=== PATIENT | male | born 1940 | race Caucasian/White ===

== ENCOUNTER 2020-08-01 17:47 | Inpatient (IN) ==
[2020-08-01 18:31] LABS: Basophils # 0.1 10*3/uL (0.0-0.2); Basophils % 0.8 % (0.0-0.8); Eosinophils # 0.1 10*3/uL (0.0-0.87); Eosinophils % 2.3 % (0.00-10.9); Hematocrit 40.7 VOL% (42.0-52.0); Immature Granulocytes % 0.3 %; Immature Granulocytes Absolute 0.02 #; Lymphocytes # 1.7 10*3/uL (1.4-4.0); Lymphocytes % 27.3 % (21.2-54.2); Mean Corpuscular HGB Conc 34.4 GM/DL (32-36); Mean Corpuscular Volume 92.5 FL (87-102); Mean Platelet Volume 9.3 FL (9.6-12.0); Monocytes % 8.2 % (1.7-12.7); Neutrophils % 61.1 % (38.7-73.9); Platelet Count 139 T/CUMM (130-400); Red Cell Distribution Width 13.2 % (9.3-17.3); White Blood Count 6.1 T/CUMM (4-12)
[2020-08-01 18:57] LABS: Albumin 3.9 G/DL (3.4-5.0); Bilirubin,Total 0.9 MG/DL (0.2-1.0); Calcium 9.1 MG/DL (8.5-10.1); Osmolality,Calculated 288.3 MOS/KG (273-304); Potassium 3.7 MMOL/L (3.5-5.1); Total Protein 7.1 G/DL (5.0-7.5)
[2020-08-01 19:17] LABS: INR 1.1; PT Patient Result 11.6 SECS (9.8-11.9)
[2020-08-01 20:01] LABS: Free T4 (Free Thyroxine) 1.14 NG/DL (0.76-1.46); Thyroid Stimulating Hormone 1.75 uIU/ml (0.358-3.74)
[2020-08-01 20:45] LABS: Bilirubin,Urine Negative (Negative); Blood, Urine Small mg/dL (Negative); Glucose,Urine (UA) Negative (Negative); Hyaline Casts,Urine 51 /LPF (0-3); Ketones,Urine Negative (Negative); Mucus,Urine Occasional /LPF (Occasional); Nitrite,Urine Negative (Negative); Protein,Urine 30 MG/DL; RBC,Urine 2 /HPF (0-4); Urine Appearance CLEAR (Clear); Urine Color Yellow (Yellow); Urine Specific Gravity 1.019 (1.001-1.035); WBC,Urine <1 /HPF (0-6)
[2020-08-01 21:07] LABS: Barbiturates Screen,Urine Negative (Negative); Benzodiazepines Screen,Urine Negative (Negative); Cannabinoid Screen,Urine Negative (Negative); Opiate Screen,Urine Negative (Negative); Phencyclidine Screen,Urine Negative (Negative)
[2020-08-01] MEDS ORDERED: MORPHINE 4 MG/1 ML VIAL IV PRN (21:59)
[2020-08-01] MEDS ORDERED: MAGNESIUM SULF RIDER 2 GM in PREMIX 1 EACH IV PRN (21:59)
[2020-08-01] MEDS ORDERED: ONDANSETRON 4 MG/2 ML VIAL IV PRN (21:59)
[2020-08-01] MEDS ORDERED: MAGNESIUM SULF RIDER 4 GM in PREMIX 1 EACH IV PRN (21:59)
[2020-08-02 06:00] LABS: Basophils # 0.1 10*3/uL (0.0-0.2); Basophils % 1.2 % (0.0-0.8); Eosinophils # 0.2 10*3/uL (0.0-0.87); Eosinophils % 3.8 % (0.00-10.9); Hematocrit 35.2 VOL% (42.0-52.0); Hemoglobin 12.8 GM/DL (14.0-18.0); Immature Granulocytes % 0.5 %; Immature Granulocytes Absolute 0.02 #; Lymphocytes # 1.2 10*3/uL (1.4-4.0); Lymphocytes % 28.3 % (21.2-54.2); Mean Corpuscular HGB Conc 36.4 GM/DL (32-36); Mean Corpuscular Volume 91.4 FL (87-102); Mean Platelet Volume 9.3 FL (9.6-12.0); Monocytes % 7.8 % (1.7-12.7); Neutrophils % 58.4 % (38.7-73.9); Red Blood Count 3.85 MC/CUMM (3.8-5.5); Red Cell Distribution Width 13.1 % (9.3-17.3)
[2020-08-02 06:09] LABS: Platelet Count 106 T/CUMM (130-400); White Blood Count 4.2 T/CUMM (4-12)
[2020-08-02 06:13] LABS: Albumin 3.1 G/DL (3.4-5.0); Calcium 8.7 MG/DL (8.5-10.1); Osmolality,Calculated 288.1 MOS/KG (273-304); Potassium 3.3 MMOL/L (3.5-5.1); Risk Ratio 2.29; Total Protein 6.1 G/DL (5.0-7.5); VLDL CHOLESTEROL 13.2 MG/DL
[2020-08-02] MEDS ORDERED: ceFAZolin 1,000 MG in SYRINGE 1 EACH IV ONE (08:20)
[2020-08-02] MEDS ORDERED: ceFAZolin 1,000 MG VIAL IRRIG ONE (08:20)
[2020-08-02] MEDS: PANTOPRAZOLE 40 MG TABLET PO SCH (08:23)
[2020-08-02] MEDS: SODIUM CHLORIDE 0.9% 1,000 ML IV SCH ×3 (08:51→17:17)
[2020-08-02] MEDS ORDERED: POTASSIUM CHLORIDE 20 MEQ TABLET PO ONE (09:32)
[2020-08-02] MEDS ORDERED: DIAZEPAM 5 MG TABLET PO ONE ×2 (12:00→13:00)
[2020-08-02] MEDS ORDERED: diphenhydrAMINE CAP 50 MG CAPSULE PO ONE ×2 (12:00→13:00)
[2020-08-02] MEDS ORDERED: HEPARIN/NACL 0.9% 2 UNITS/ML 500 ML IV ONE (12:16)
[2020-08-02] MEDS ORDERED: LIDOCAINE 1%/EPI INJ 20 ML VIAL ONE (12:16)
[2020-08-02] MEDS ORDERED: ceFAZolin 1,000 MG VIAL ONE (12:24)
[2020-08-02] MEDS: amLODIPine 5 MG TABLET PO SCH (14:47)
[2020-08-03] MEDS: SODIUM CHLORIDE 0.9% 1,000 ML IV SCH ×2 (02:23→08:52)
[2020-08-03 04:50] VITALS: BP 153/78
[2020-08-03 05:16] LABS: Hemoglobin 13.3 GM/DL (14.0-18.0); Red Blood Count 4.14 MC/CUMM (3.8-5.5); White Blood Count 5.4 T/CUMM (4-12)
[2020-08-03 05:17] LABS: Basophils # 0.1 10*3/uL (0.0-0.2); Basophils % 0.9 % (0.0-0.8); Eosinophils # 0.2 10*3/uL (0.0-0.87); Eosinophils % 3.4 % (0.00-10.9); Hematocrit 37.5 VOL% (42.0-52.0); Immature Granulocytes % 0.4 %; Immature Granulocytes Absolute 0.02 #; Lymphocytes # 1.2 10*3/uL (1.4-4.0); Lymphocytes % 22.4 % (21.2-54.2); Mean Corpuscular HGB Conc 35.5 GM/DL (32-36); Mean Corpuscular Volume 90.6 FL (87-102); Mean Platelet Volume 9.3 FL (9.6-12.0); Neutrophils % 63.9 % (38.7-73.9); Platelet Count 108 T/CUMM (130-400); Red Cell Distribution Width 12.8 % (9.3-17.3)
[2020-08-03 05:29] LABS: Calcium 8.5 MG/DL (8.5-10.1); Osmolality,Calculated 280.5 MOS/KG (273-304); Potassium 3.4 MMOL/L (3.5-5.1)
[2020-08-03 06:01] LABS: Platelet Estimate Adequate
[2020-08-03 06:02] LABS: Anisocytosis Slight
[2020-08-03] MEDS: PANTOPRAZOLE 40 MG TABLET PO SCH (08:18)
[2020-08-03] MEDS: amLODIPine 5 MG TABLET PO SCH (08:18)
[2020-08-03] MEDS ORDERED: ASPIRIN EC 81 MG TABLET PO SCH (09:00)
[2020-08-03] MEDS ORDERED: FEXOFENADINE 180 MG TABLET PO SCH (09:00)
== END 2020-08-03 10:56 | disposition home or self-care (01) | DRG 243 ==
LOC: N.ED 17:47 → N.EDINP 19:34 → N.TELEN 20:07
PROVIDERS: ADMIT Internal Medicine Cardiovascular Disease; ATTEND Internal Medicine Cardiovascular Disease

== ENCOUNTER 2022-07-04 09:26 | Inpatient (IN) ==
[2022-07-04 10:02] LABS: Basophils # 0.1 10*3/uL (0.0-0.2); Basophils % 0.9 % (0.0-0.8); Eosinophils # 0.2 10*3/uL (0.0-0.87); Eosinophils % 2.9 % (0.00-10.9); Hematocrit 42.1 VOL% (42.0-52.0); Hemoglobin 13.9 GM/DL (14.0-18.0); Immature Granulocytes % 0.5 %; Immature Granulocytes Absolute 0.03 #; Lymphocytes # 1.6 10*3/uL (1.4-4.0); Lymphocytes % 23.9 % (21.2-54.2); Mean Corpuscular Volume 98.1 FL (87-102); Mean Platelet Volume 10.7 FL (9.6-12.0); Monocytes # 0.5 10*3/uL (0.11-0.8); Monocytes % 8.2 % (1.7-12.7); Neutrophils % 63.6 % (38.7-73.9); Platelet Count 142 T/CUMM (130-400); Red Blood Count 4.29 MC/CUMM (3.8-5.5)
[2022-07-04 10:22] LABS: Albumin 3.2 G/DL (3.4-5.0); Bilirubin,Total 0.8 MG/DL (0.20-1.00); Calcium 8.8 MG/DL (8.5-10.1); Potassium 4.1 MMOL/L (3.5-5.1)
[2022-07-04 10:32] LABS: INR 1.1; PT Patient Result 12.3 SECS (10.1-12.1)
[2022-07-04] MEDS ORDERED: ONDANSETRON 4 MG/2 ML VIAL ONE (10:41)
[2022-07-04] MEDS ORDERED: ONDANSETRON 4 MG/2 ML VIAL IV STA (10:58)
[2022-07-04] MEDS ORDERED: FUROSEMIDE 40 MG/4 ML VIAL IV STA (11:02)
[2022-07-04] MEDS ORDERED: ALBUTEROL 2.5 MG/3 ML NEB RESP TX PRN (12:00)
[2022-07-04] MEDS: HEPARIN 5,000 UNIT/1 ML VIAL SUBCUT SCH ×2 (12:25→23:40)
[2022-07-04] MEDS: AZITHROMYCIN INJ 500 MG in SODIUM CHLORIDE 0.9% 250 ML IV SCH (12:28)
[2022-07-04] MEDS: FUROSEMIDE 40 MG/4 ML VIAL IV SCH ×2 (12:50→19:47)
[2022-07-04 14:05] LABS: Bacteria,Urine Occasional /HPF (Few); Hyaline Casts,Urine 4 /LPF (0-3); Squamous Epithelial Cell,Urine Occasional /HPF (0-10)
[2022-07-04 14:07] LABS: Glucose,Urine (UA) Negative (Negative); Ketones,Urine Negative (Negative); Nitrite,Urine Negative (Negative); Protein,Urine Negative (Negative); Urine Appearance Clear (Clear); Urine Color Yellow (Yellow)
[2022-07-04 14:08] LABS: Bilirubin,Urine Negative (Negative); Blood, Urine Negative (Negative); Urine Urobilinogen 0.2 eU/dL (<2.0)
[2022-07-04] MEDS: cefTRIAXone 1,000 MG in SODIUM CHLORIDE 0.9% 100 ML IV SCH (15:25)
[2022-07-04] MEDS: PANTOPRAZOLE 40 MG VIAL IV SCH (20:46)
[2022-07-05] MEDS ORDERED: MORPHINE 2 MG/1 ML SYRINGE IV PRN (00:53)
[2022-07-05] MEDS: FUROSEMIDE 40 MG/4 ML VIAL IV SCH ×3 (03:55→21:17)
[2022-07-05 05:54] LABS: Basophils % 0.6 % (0.0-0.8); Eosinophils # 0.1 10*3/uL (0.0-0.87); Hematocrit 40.3 VOL% (42.0-52.0); Hemoglobin 13.5 GM/DL (14.0-18.0); Immature Granulocytes % 0.4 %; Immature Granulocytes Absolute 0.03 #; Lymphocytes # 1.2 10*3/uL (1.4-4.0); Lymphocytes % 17.2 % (21.2-54.2); Mean Corpuscular HGB Conc 33.5 GM/DL (32-36); Mean Corpuscular Volume 97.6 FL (87-102); Mean Platelet Volume 10.9 FL (9.6-12.0); Monocytes # 0.5 10*3/uL (0.11-0.8); Monocytes % 6.8 % (1.7-12.7); Platelet Count 126 T/CUMM (130-400); Red Blood Count 4.13 MC/CUMM (3.8-5.5); Red Cell Distribution Width 13.9 % (9.3-17.3)
[2022-07-05 06:08] LABS: Risk Ratio 1.95; VLDL Cholesterol 12.4 MG/DL
[2022-07-05] MEDS: PANTOPRAZOLE 40 MG VIAL IV SCH ×2 (08:15→21:19)
[2022-07-05] MEDS: carvediloL 3.125 MG TABLET PO SCH ×2 (09:00→16:02)
[2022-07-05] MEDS: HEPARIN 5,000 UNIT/1 ML VIAL SUBCUT SCH ×2 (13:54→23:42)
[2022-07-05] MEDS: AZITHROMYCIN INJ 500 MG in SODIUM CHLORIDE 0.9% 250 ML IV SCH (13:54)
[2022-07-05] MEDS: cefTRIAXone 1,000 MG in SODIUM CHLORIDE 0.9% 100 ML IV SCH (15:56)
[2022-07-06] MEDS: carvediloL 3.125 MG TABLET PO SCH ×2 (08:30→17:04)
[2022-07-06 08:46] LABS: Calcium 8.3 MG/DL (8.5-10.1)
[2022-07-06 08:52] LABS: Potassium 2.5 MMOL/L (3.5-5.1)
[2022-07-06] MEDS: FUROSEMIDE 40 MG/4 ML VIAL IV SCH ×2 (08:56→20:55)
[2022-07-06] MEDS ORDERED: POTASSIUM CHLORIDE 20 MEQ TABLET PO ONE ×2 (09:14→11:24)
[2022-07-06] MEDS ORDERED: MAGNESIUM SULF RIDER 2 GM/50 ML PREMIX IV ONE (09:15)
[2022-07-06] MEDS: PANTOPRAZOLE 40 MG VIAL IV SCH ×2 (09:42→20:54)
[2022-07-06] MEDS: HEPARIN 5,000 UNIT/1 ML VIAL SUBCUT SCH (11:37)
[2022-07-06] MEDS: AZITHROMYCIN INJ 500 MG in SODIUM CHLORIDE 0.9% 250 ML IV SCH (14:19)
[2022-07-06] MEDS: cefTRIAXone 1,000 MG in SODIUM CHLORIDE 0.9% 100 ML IV SCH (17:04)
[2022-07-07 05:01] LABS: Basophils % 0.5 % (0.0-0.8); Eosinophils # 0.1 10*3/uL (0.0-0.87); Eosinophils % 1.6 % (0.00-10.9); Hematocrit 39.2 VOL% (42.0-52.0); Hemoglobin 13.3 GM/DL (14.0-18.0); Immature Granulocytes % 0.5 %; Immature Granulocytes Absolute 0.03 #; Lymphocytes # 0.8 10*3/uL (1.4-4.0); Lymphocytes % 13.3 % (21.2-54.2); Mean Corpuscular HGB Conc 33.9 GM/DL (32-36); Mean Corpuscular Volume 95.8 FL (87-102); Mean Platelet Volume 10.3 FL (9.6-12.0); Monocytes # 0.5 10*3/uL (0.11-0.8); Neutrophils % 76.1 % (38.7-73.9); Platelet Count 118 T/CUMM (130-400); Red Blood Count 4.09 MC/CUMM (3.8-5.5); Red Cell Distribution Width 13.6 % (9.3-17.3); White Blood Count 5.62 T/CUMM (4-12)
[2022-07-07 05:22] LABS: Calcium 8.4 MG/DL (8.5-10.1); Potassium 2.8 MMOL/L (3.5-5.1)
[2022-07-07] MEDS ORDERED: POTASSIUM CHLORIDE 20 MEQ TABLET PO ONE (08:20)
[2022-07-07] MEDS: FUROSEMIDE 40 MG/4 ML VIAL IV SCH ×2 (09:32→21:48)
[2022-07-07] MEDS: carvediloL 3.125 MG TABLET PO SCH ×3 (09:32→20:42)
[2022-07-07] MEDS: POTASSIUM CHLORIDE 20 MEQ TABLET PO SCH ×2 (09:32→21:24)
[2022-07-07] MEDS: PANTOPRAZOLE 40 MG VIAL IV SCH ×2 (09:32→21:53)
[2022-07-07] MEDS: ISOSORBIDE MONONITRATE 30 MG TABLET PO SCH (12:26)
[2022-07-07] MEDS: hydrALAZINE 25 MG TABLET PO SCH ×2 (12:26→21:24)
[2022-07-07] MEDS: DAPAGLIFLOZIN 10 MG TABLET PO SCH (12:26)
[2022-07-07] MEDS: AZITHROMYCIN INJ 500 MG in SODIUM CHLORIDE 0.9% 250 ML IV SCH (12:30)
[2022-07-07 12:51] LABS: Glucose,Pleural Fluid 133 MG/DL; LDH,Pleural Fluid 90 U/L
[2022-07-07 12:56] LABS: Eosinophils,Pleural Fluid 1 %; Lymphocytes,Pleural Fluid 54 %; Monocytes,Pleural Fluid 35 %; Neutrophils,Pleural Fluid 10 %
[2022-07-07 12:57] LABS: RBC,Pleural Fluid 432 T/CUMM
[2022-07-07] MEDS ORDERED: ZINC OXIDE PASTE 113 GM TUBE TOP PRN (14:39)
[2022-07-07] MEDS: cefTRIAXone 1,000 MG in SODIUM CHLORIDE 0.9% 100 ML IV SCH (17:50)
[2022-07-08] MEDS: HEPARIN 5,000 UNIT/1 ML VIAL SUBCUT SCH ×2 (00:05→14:26)
[2022-07-08 05:15] LABS: Basophils % 0.6 % (0.0-0.8); Eosinophils # 0.1 10*3/uL (0.0-0.87); Eosinophils % 1.5 % (0.00-10.9); Hematocrit 38.1 VOL% (42.0-52.0); Hemoglobin 12.7 GM/DL (14.0-18.0); Immature Granulocytes % 0.4 %; Immature Granulocytes Absolute 0.02 #; Lymphocytes % 18.9 % (21.2-54.2); Mean Corpuscular HGB Conc 33.3 GM/DL (32-36); Mean Corpuscular Volume 95.5 FL (87-102); Mean Platelet Volume 10.6 FL (9.6-12.0); Monocytes # 0.5 10*3/uL (0.11-0.8); Neutrophils % 69.6 % (38.7-73.9); Platelet Count 116 T/CUMM (130-400); Red Blood Count 3.99 MC/CUMM (3.8-5.5); Red Cell Distribution Width 13.5 % (9.3-17.3); White Blood Count 5.44 T/CUMM (4-12)
[2022-07-08 05:52] LABS: Calcium 8.4 MG/DL (8.5-10.1); Osmolality,Calculated 297.6 MOS/KG (273-304); Potassium 2.7 MMOL/L (3.5-5.1)
[2022-07-08] MEDS: FUROSEMIDE 40 MG/4 ML VIAL IV SCH (09:04)
[2022-07-08] MEDS: POTASSIUM CHLORIDE 20 MEQ TABLET PO SCH ×2 (09:04→21:13)
[2022-07-08] MEDS: carvediloL 3.125 MG TABLET PO SCH ×2 (09:04→16:47)
[2022-07-08] MEDS: PANTOPRAZOLE 40 MG VIAL IV SCH ×2 (09:04→21:13)
[2022-07-08] MEDS: hydrALAZINE 25 MG TABLET PO SCH ×2 (09:04→21:12)
[2022-07-08] MEDS: DAPAGLIFLOZIN 10 MG TABLET PO SCH (09:05)
[2022-07-08] MEDS: ISOSORBIDE MONONITRATE 30 MG TABLET PO SCH (09:05)
[2022-07-08] MEDS ORDERED: POTASSIUM CHLORIDE 20 MEQ TABLET PO ONE (09:23)
[2022-07-08] MEDS: SPIRONOLACTONE 25 MG TABLET PO SCH (14:26)
[2022-07-08] MEDS: AZITHROMYCIN INJ 500 MG in SODIUM CHLORIDE 0.9% 250 ML IV SCH (14:27)
[2022-07-08] MEDS: cefTRIAXone 1,000 MG in SODIUM CHLORIDE 0.9% 100 ML IV SCH (16:46)
[2022-07-09] MEDS: HEPARIN 5,000 UNIT/1 ML VIAL SUBCUT SCH ×3 (00:51→23:49)
[2022-07-09 05:26] LABS: Basophils % 0.5 % (0.0-0.8); Eosinophils # 0.1 10*3/uL (0.0-0.87); Eosinophils % 1.7 % (0.00-10.9); Hematocrit 35.6 VOL% (42.0-52.0); Hemoglobin 12.1 GM/DL (14.0-18.0); Immature Granulocytes % 0.5 %; Immature Granulocytes Absolute 0.02 #; Lymphocytes # 0.5 10*3/uL (1.4-4.0); Lymphocytes % 11.3 % (21.2-54.2); Mean Corpuscular Volume 96.7 FL (87-102); Mean Platelet Volume 10.4 FL (9.6-12.0); Monocytes # 0.3 10*3/uL (0.11-0.8); Monocytes % 7.9 % (1.7-12.7); Neutrophils % 78.1 % (38.7-73.9); Platelet Count 104 T/CUMM (130-400); Red Blood Count 3.68 MC/CUMM (3.8-5.5); Red Cell Distribution Width 13.9 % (9.3-17.3); White Blood Count 4.06 T/CUMM (4-12)
[2022-07-09 05:53] LABS: Calcium 8.2 MG/DL (8.5-10.1); Osmolality,Calculated 293.8 MOS/KG (273-304)
[2022-07-09] MEDS ORDERED: FUROSEMIDE 40 MG TABLET PO SCH (09:00)
[2022-07-09] MEDS: carvediloL 3.125 MG TABLET PO SCH (09:02)
[2022-07-09] MEDS: DAPAGLIFLOZIN 10 MG TABLET PO SCH (09:02)
[2022-07-09] MEDS: POTASSIUM CHLORIDE 20 MEQ TABLET PO SCH ×2 (09:02→21:32)
[2022-07-09] MEDS: hydrALAZINE 25 MG TABLET PO SCH ×2 (09:02→21:32)
[2022-07-09] MEDS: ISOSORBIDE MONONITRATE 30 MG TABLET PO SCH (09:03)
[2022-07-09] MEDS: PANTOPRAZOLE 40 MG VIAL IV SCH ×2 (09:03→21:32)
[2022-07-09] MEDS: SPIRONOLACTONE 25 MG TABLET PO SCH (09:03)
[2022-07-09] MEDS ORDERED: POTASSIUM CHLORIDE 20 MEQ TABLET PO ONE (09:24)
[2022-07-09] MEDS ORDERED: carvediloL 6.25 MG TABLET PO ONE (11:23)
[2022-07-09 11:51] LABS: Mycoplasma pneumoniae Ab, IgG Equivocal (Negative); Mycoplasma pneumoniae Ab, IgM Negative (Negative)
[2022-07-09] MEDS: AZITHROMYCIN INJ 500 MG in SODIUM CHLORIDE 0.9% 250 ML IV SCH (13:59)
[2022-07-09] MEDS: cefTRIAXone 1,000 MG in SODIUM CHLORIDE 0.9% 100 ML IV SCH (15:50)
[2022-07-09] MEDS: carvediloL 12.5 MG TABLET PO SCH (17:01)
[2022-07-10 05:27] LABS: Basophils % 0.7 % (0.0-0.8); Eosinophils % 0.2 % (0.00-10.9); Hematocrit 38.7 VOL% (42.0-52.0); Hemoglobin 12.3 GM/DL (14.0-18.0); Immature Granulocytes % 0.5 %; Immature Granulocytes Absolute 0.02 #; Lymphocytes # 0.7 10*3/uL (1.4-4.0); Lymphocytes % 16.3 % (21.2-54.2); Mean Corpuscular HGB Conc 31.8 GM/DL (32-36); Mean Platelet Volume 10.6 FL (9.6-12.0); Monocytes # 0.5 10*3/uL (0.11-0.8); Monocytes % 10.2 % (1.7-12.7); Neutrophils % 72.1 % (38.7-73.9); Platelet Count 100 T/CUMM (130-400); Red Blood Count 3.87 MC/CUMM (3.8-5.5); Red Cell Distribution Width 13.8 % (9.3-17.3); White Blood Count 4.42 T/CUMM (4-12)
[2022-07-10 05:53] LABS: Calcium 8.6 MG/DL (8.5-10.1); Osmolality,Calculated 292.1 MOS/KG (273-304); Potassium 3.6 MMOL/L (3.5-5.1)
[2022-07-10] MEDS ORDERED: SPIRONOLACTONE 25 MG TABLET PO SCH (09:00)
[2022-07-10] MEDS: DAPAGLIFLOZIN 10 MG TABLET PO SCH (11:11)
[2022-07-10] MEDS: carvediloL 25 MG TABLET PO SCH ×2 (11:11→18:08)
[2022-07-10] MEDS: hydrALAZINE 25 MG TABLET PO SCH ×2 (11:11→21:02)
[2022-07-10] MEDS: PANTOPRAZOLE 40 MG VIAL IV SCH ×2 (11:12→21:18)
[2022-07-10] MEDS: ISOSORBIDE MONONITRATE 30 MG TABLET PO SCH (11:12)
[2022-07-10] MEDS: SPIRONOLACTONE 25 MG TABLET PO SCH (11:12)
[2022-07-10] MEDS: carvediloL 12.5 MG TABLET PO SCH (11:14)
[2022-07-10] MEDS: HEPARIN 5,000 UNIT/1 ML VIAL SUBCUT SCH ×2 (11:15→23:51)
[2022-07-10] MEDS ORDERED: ACETAMINOPHEN 325 MG TABLET PO PRN (12:53)
[2022-07-10] MEDS: AZITHROMYCIN INJ 500 MG in SODIUM CHLORIDE 0.9% 250 ML IV SCH (12:54)
[2022-07-10] MEDS ORDERED: POLYETHYLENE GLYCOL POWDER 17 GM PACK PO PRN (18:49)
[2022-07-11 05:22] LABS: Basophils % 0.4 % (0.0-0.8); Eosinophils % 0.4 % (0.00-10.9); Hematocrit 36.6 VOL% (42.0-52.0); Immature Granulocytes % 0.6 %; Immature Granulocytes Absolute 0.03 #; Lymphocytes % 19.3 % (21.2-54.2); Mean Corpuscular HGB Conc 32.8 GM/DL (32-36); Mean Corpuscular Volume 98.9 FL (87-102); Mean Platelet Volume 11.4 FL (9.6-12.0); Monocytes # 0.4 10*3/uL (0.11-0.8); Monocytes % 8.5 % (1.7-12.7); Neutrophils % 70.8 % (38.7-73.9); Platelet Count 86 T/CUMM (130-400); Red Cell Distribution Width 13.8 % (9.3-17.3); White Blood Count 4.93 T/CUMM (4-12)
[2022-07-11 05:37] LABS: Calcium 8.4 MG/DL (8.5-10.1); Osmolality,Calculated 294.3 MOS/KG (273-304); Potassium 3.5 MMOL/L (3.5-5.1)
[2022-07-11 05:45] LABS: Microcytosis Slight; Ovalocytes Slight
[2022-07-11] MEDS: SPIRONOLACTONE 25 MG TABLET PO SCH (09:55)
[2022-07-11] MEDS: ISOSORBIDE MONONITRATE 30 MG TABLET PO SCH (09:55)
[2022-07-11] MEDS: DAPAGLIFLOZIN 10 MG TABLET PO SCH (09:55)
[2022-07-11] MEDS: carvediloL 25 MG TABLET PO SCH (09:55)
[2022-07-11] MEDS: hydrALAZINE 25 MG TABLET PO SCH (09:55)
[2022-07-11] MEDS: PANTOPRAZOLE 40 MG VIAL IV SCH (09:56)
[2022-07-11 11:58] VITALS: BP 100/65
[2022-07-11] MEDS: HEPARIN 5,000 UNIT/1 ML VIAL SUBCUT SCH (12:43)
== END 2022-07-11 12:32 | disposition home health service (06) | DRG 56 ==
LOC: EDBD → EDUNIT# → N.ED 09:26 → N.EDINP 12:00 → SUATTDRO 12:00 → N.ICU 13:04 → N.TELES 07-05 10:03
PROVIDERS: ADMIT Internal Medicine; ATTEND Internal Medicine

== ENCOUNTER 2022-07-14 17:32 | Inpatient (IN) ==
[2022-07-14 18:05] LABS: Basophils % 0.2 % (0.0-0.8); Eosinophils % 0.2 % (0.00-10.9); Hematocrit 41.7 VOL% (42.0-52.0); Hemoglobin 13.5 GM/DL (14.0-18.0); Immature Granulocytes % 0.4 %; Immature Granulocytes Absolute 0.02 #; Lymphocytes # 0.8 10*3/uL (1.4-4.0); Lymphocytes % 16.3 % (21.2-54.2); Mean Corpuscular HGB Conc 32.4 GM/DL (32-36); Mean Corpuscular Volume 98.3 FL (87-102); Monocytes # 0.2 10*3/uL (0.11-0.8); Monocytes % 4.7 % (1.7-12.7); Neutrophils % 78.2 % (38.7-73.9); Platelet Count 105 T/CUMM (130-400); Red Blood Count 4.24 MC/CUMM (3.8-5.5); Red Cell Distribution Width 13.8 % (9.3-17.3); White Blood Count 5.09 T/CUMM (4-12)
[2022-07-14 18:23] LABS: Albumin 2.7 G/DL (3.4-5.0); Calcium 8.6 MG/DL (8.5-10.1); Osmolality,Calculated 301.1 MOS/KG (273-304); Potassium 4.2 MMOL/L (3.5-5.1)
[2022-07-14 18:43] LABS: INR 1.1; PT Patient Result 12.5 SECS (10.1-12.1)
[2022-07-14] MEDS ORDERED: VANCOMYCIN INJ 1,000 MG in SODIUM CHLORIDE 0.9% 250 ML IV STA (19:05)
[2022-07-14] MEDS ORDERED: PIPERACILLIN/TAZOBACTAM 3,375 MG in SODIUM CHLORIDE 0.9% 100 ML IV STA (19:05)
[2022-07-14 19:55] LABS: Platelet Estimate Normal
[2022-07-14] MEDS ORDERED: ONDANSETRON 4 MG/2 ML VIAL IV PRN (21:01)
[2022-07-14] MEDS ORDERED: LACTULOSE 20 GM/30 ML UDCUP PO PRN (21:01)
[2022-07-14] MEDS ORDERED: guaiFENesin/DM ER 600-30 MG TABLET PO PRN (21:01)
[2022-07-14] MEDS ORDERED: ZINC OXIDE PASTE 113 GM TUBE TOP PRN (21:06)
[2022-07-14] MEDS ORDERED: ALBUTEROL/IPRATROPIUM 3 ML NEB RESP TX STA (21:09)
[2022-07-14] MEDS ORDERED: ALBUTEROL/IPRATROPIUM 3 ML NEB RESP TX PRN (21:09)
[2022-07-14 21:27] LABS: % Iron Saturation 12.9 % (18-50)
[2022-07-14 21:29] LABS: Risk Ratio 1.97
[2022-07-14] MEDS ORDERED: SODIUM CHLORIDE 0.9% 1,000 ML IV SCH (21:30)
[2022-07-14] MEDS ORDERED: VANCOMYCIN INJ 1,750 MG in SODIUM CHLORIDE 0.9% 500 ML IV ONE (22:00)
[2022-07-14] MEDS ORDERED: VANCOMYCIN INJ 1,000 MG in SODIUM CHLORIDE 0.9% 250 ML IV PRN (22:26)
[2022-07-14 23:04] LABS: Folate 8.67 NG/ML (5.38-24.0); Vitamin B12 > 2000 PG/ML (211-911)
[2022-07-15] MEDS: PIPERACILLIN/TAZOBACTAM 3,375 MG in SODIUM CHLORIDE 0.9% 100 ML IV SCH ×3 (05:20→21:00)
[2022-07-15 05:36] LABS: Basophils % 0.3 % (0.0-0.8); Eosinophils % 0.3 % (0.00-10.9); Hematocrit 38.5 VOL% (42.0-52.0); Hemoglobin 12.4 GM/DL (14.0-18.0); Immature Granulocytes % 0.8 %; Immature Granulocytes Absolute 0.03 #; Lymphocytes # 0.6 10*3/uL (1.4-4.0); Lymphocytes % 15.6 % (21.2-54.2); Mean Corpuscular HGB Conc 32.2 GM/DL (32-36); Mean Corpuscular Volume 98.5 FL (87-102); Mean Platelet Volume 11.3 FL (9.6-12.0); Monocytes # 0.2 10*3/uL (0.11-0.8); Platelet Count 89 T/CUMM (130-400); Red Blood Count 3.91 MC/CUMM (3.8-5.5); Red Cell Distribution Width 13.7 % (9.3-17.3); White Blood Count 3.85 T/CUMM (4-12)
[2022-07-15 06:11] LABS: Albumin 2.2 G/DL (3.4-5.0); Bilirubin,Total 0.9 MG/DL (0.20-1.00); Osmolality,Calculated 304.7 MOS/KG (273-304); Potassium 3.3 MMOL/L (3.5-5.1); Thyroid Stimulating Hormone 0.285 uIU/ml (0.358-3.74); Total Protein 5.2 G/DL (6.4-8.2)
[2022-07-15 06:13] LABS: Platelet Estimate Decreased
[2022-07-15] MEDS ORDERED: POTASSIUM CHLORIDE 20 MEQ TABLET PO ONE (09:00)
[2022-07-15] MEDS: DAPAGLIFLOZIN 10 MG TABLET PO SCH (09:42)
[2022-07-15] MEDS: DOCUSATE SODIUM 100 MG CAPSULE PO SCH ×2 (09:45→20:59)
[2022-07-15] MEDS: carvediloL 3.125 MG TABLET PO SCH ×2 (09:45→20:59)
[2022-07-15] MEDS: FERROUS SULFATE 325 MG TABLET PO SCH (09:45)
[2022-07-15] MEDS: PANTOPRAZOLE 40 MG TABLET PO SCH (09:46)
[2022-07-15] MEDS: DESITIN 4OZ/NYSTATIN 15 GRAM MIXTURE PASTE TOP SCH (21:30)
[2022-07-16] MEDS ORDERED: VANCOMYCIN INJ 1,000 MG in SODIUM CHLORIDE 0.9% 250 ML IV ONE
[2022-07-16] MEDS: PIPERACILLIN/TAZOBACTAM 3,375 MG in SODIUM CHLORIDE 0.9% 100 ML IV SCH ×3 (05:14→20:12)
[2022-07-16 05:56] LABS: Basophils % 0.2 % (0.0-0.8); Eosinophils % 0.6 % (0.00-10.9); Hematocrit 39.6 VOL% (42.0-52.0); Hemoglobin 12.9 GM/DL (14.0-18.0); Immature Granulocytes % 0.4 %; Immature Granulocytes Absolute 0.02 #; Lymphocytes # 0.6 10*3/uL (1.4-4.0); Lymphocytes % 11.4 % (21.2-54.2); Mean Corpuscular HGB Conc 32.6 GM/DL (32-36); Mean Corpuscular Volume 98.8 FL (87-102); Mean Platelet Volume 11.1 FL (9.6-12.0); Monocytes # 0.2 10*3/uL (0.11-0.8); Neutrophils % 83.4 % (38.7-73.9); Platelet Count 94 T/CUMM (130-400); Red Blood Count 4.01 MC/CUMM (3.8-5.5); Red Cell Distribution Width 13.8 % (9.3-17.3); White Blood Count 5.01 T/CUMM (4-12)
[2022-07-16 06:11] LABS: Albumin 2.3 G/DL (3.4-5.0); Bilirubin,Total 0.9 MG/DL (0.20-1.00); Calcium 8.1 MG/DL (8.5-10.1); Osmolality,Calculated 305.6 MOS/KG (273-304); Potassium 3.7 MMOL/L (3.5-5.1); Total Protein 5.4 G/DL (6.4-8.2)
[2022-07-16 06:44] LABS: Platelet Estimate Decreased
[2022-07-16] MEDS: DOCUSATE SODIUM 100 MG CAPSULE PO SCH ×2 (09:37→20:13)
[2022-07-16] MEDS: DAPAGLIFLOZIN 10 MG TABLET PO SCH (09:37)
[2022-07-16] MEDS: PANTOPRAZOLE 40 MG TABLET PO SCH (09:38)
[2022-07-16] MEDS: FERROUS SULFATE 325 MG TABLET PO SCH (09:38)
[2022-07-16] MEDS: carvediloL 3.125 MG TABLET PO SCH ×2 (09:39→20:13)
[2022-07-16] MEDS: DESITIN 4OZ/NYSTATIN 15 GRAM MIXTURE PASTE TOP SCH ×2 (09:44→20:13)
[2022-07-16] MEDS: ACETAMINOPHEN 325 MG TABLET PO PRN (14:12)
[2022-07-16] MEDS: traZODone 50 MG TABLET PO SCH (20:12)
[2022-07-17] MEDS: PIPERACILLIN/TAZOBACTAM 3,375 MG in SODIUM CHLORIDE 0.9% 100 ML IV SCH ×3 (04:45→22:01)
[2022-07-17] MEDS: carvediloL 3.125 MG TABLET PO SCH ×2 (09:09→22:02)
[2022-07-17] MEDS: DESITIN 4OZ/NYSTATIN 15 GRAM MIXTURE PASTE TOP SCH ×2 (09:09→22:04)
[2022-07-17] MEDS: DAPAGLIFLOZIN 10 MG TABLET PO SCH (09:09)
[2022-07-17] MEDS: DOCUSATE SODIUM 100 MG CAPSULE PO SCH ×2 (09:09→22:01)
[2022-07-17] MEDS: PANTOPRAZOLE 40 MG TABLET PO SCH (09:09)
[2022-07-17] MEDS: FERROUS SULFATE 325 MG TABLET PO SCH (09:09)
[2022-07-17 09:37] LABS: Basophils % 0.2 % (0.0-0.8); Eosinophils % 0.6 % (0.00-10.9); Hematocrit 38.6 VOL% (42.0-52.0); Hemoglobin 12.7 GM/DL (14.0-18.0); Immature Granulocytes % 0.4 %; Immature Granulocytes Absolute 0.02 #; Lymphocytes # 0.5 10*3/uL (1.4-4.0); Lymphocytes % 10.6 % (21.2-54.2); Mean Corpuscular HGB Conc 32.9 GM/DL (32-36); Mean Platelet Volume 10.9 FL (9.6-12.0); Monocytes # 0.2 10*3/uL (0.11-0.8); Monocytes % 3.5 % (1.7-12.7); Neutrophils % 84.7 % (38.7-73.9); Red Cell Distribution Width 13.9 % (9.3-17.3); White Blood Count 4.92 T/CUMM (4-12)
[2022-07-17 09:38] LABS: Platelet Count 104 T/CUMM (130-400)
[2022-07-17 09:47] LABS: Calcium 8.1 MG/DL (8.5-10.1); Osmolality,Calculated 309.3 MOS/KG (273-304); Potassium 3.6 MMOL/L (3.5-5.1)
[2022-07-17] MEDS: ACETAMINOPHEN 325 MG TABLET PO PRN (14:26)
[2022-07-17] MEDS ORDERED: FUROSEMIDE 20 MG/2 ML VIAL IV ONE (15:00)
[2022-07-17] MEDS ORDERED: MELATONIN 3 MG TABLET PO SCH (21:00)
[2022-07-17] MEDS: traZODone 50 MG TABLET PO SCH (22:01)
[2022-07-18 04:52] LABS: Basophils % 0.2 % (0.0-0.8); Eosinophils % 0.8 % (0.00-10.9); Hematocrit 38.5 VOL% (42.0-52.0); Hemoglobin 12.2 GM/DL (14.0-18.0); Immature Granulocytes % 0.6 %; Immature Granulocytes Absolute 0.03 #; Lymphocytes # 0.6 10*3/uL (1.4-4.0); Lymphocytes % 11.2 % (21.2-54.2); Mean Corpuscular HGB Conc 31.7 GM/DL (32-36); Mean Corpuscular Volume 100.8 FL (87-102); Mean Platelet Volume 10.7 FL (9.6-12.0); Monocytes # 0.2 10*3/uL (0.11-0.8); Monocytes % 4.1 % (1.7-12.7); Neutrophils % 83.1 % (38.7-73.9); Platelet Count 112 T/CUMM (130-400); Red Blood Count 3.82 MC/CUMM (3.8-5.5); Red Cell Distribution Width 13.7 % (9.3-17.3); White Blood Count 4.93 T/CUMM (4-12)
[2022-07-18] MEDS: PIPERACILLIN/TAZOBACTAM 3,375 MG in SODIUM CHLORIDE 0.9% 100 ML IV SCH ×3 (06:16→20:52)
[2022-07-18] MEDS: carvediloL 3.125 MG TABLET PO SCH ×2 (08:42→20:51)
[2022-07-18] MEDS: FERROUS SULFATE 325 MG TABLET PO SCH (08:42)
[2022-07-18] MEDS: DOCUSATE SODIUM 100 MG CAPSULE PO SCH ×2 (08:42→20:51)
[2022-07-18] MEDS: PANTOPRAZOLE 40 MG TABLET PO SCH (08:42)
[2022-07-18] MEDS: DAPAGLIFLOZIN 10 MG TABLET PO SCH (08:42)
[2022-07-18] MEDS: DESITIN 4OZ/NYSTATIN 15 GRAM MIXTURE PASTE TOP SCH ×2 (08:50→21:23)
[2022-07-18] MEDS ORDERED: FUROSEMIDE 20 MG/2 ML VIAL IV ONE (11:29)
[2022-07-18] MEDS: ALBUTEROL/IPRATROPIUM 3 ML NEB RESP TX SCH ×2 (12:10→19:17)
[2022-07-18] MEDS: guaiFENesin/DM ER 600-30 MG TABLET PO SCH ×2 (15:03→20:51)
[2022-07-18] MEDS: traZODone 50 MG TABLET PO SCH (20:51)
[2022-07-18] MEDS ORDERED: MELATONIN 3 MG TABLET PO SCH (21:00)
[2022-07-19] MEDS: ALBUTEROL/IPRATROPIUM 3 ML NEB RESP TX SCH ×2 (00:19→06:52)
[2022-07-19] MEDS: PIPERACILLIN/TAZOBACTAM 3,375 MG in SODIUM CHLORIDE 0.9% 100 ML IV SCH (05:18)
[2022-07-19 08:53] VITALS: BP 150/64
[2022-07-19] MEDS: DOCUSATE SODIUM 100 MG CAPSULE PO SCH (08:59)
[2022-07-19] MEDS: DAPAGLIFLOZIN 10 MG TABLET PO SCH (09:00)
[2022-07-19] MEDS: carvediloL 3.125 MG TABLET PO SCH (09:00)
[2022-07-19] MEDS: FERROUS SULFATE 325 MG TABLET PO SCH (09:00)
[2022-07-19] MEDS: DESITIN 4OZ/NYSTATIN 15 GRAM MIXTURE PASTE TOP SCH (09:00)
[2022-07-19] MEDS: guaiFENesin/DM ER 600-30 MG TABLET PO SCH (09:00)
[2022-07-19] MEDS: PANTOPRAZOLE 40 MG TABLET PO SCH (09:00)
== END 2022-07-19 11:20 | disposition hospice, home (50) | DRG 177 ==
LOC: N.ED 17:32 → N.2E 21:00
PROVIDERS: ADMIT Internal Medicine; ATTEND Internal Medicine